=== PATIENT | female | born 1935 | race Caucasian/White ===

== ENCOUNTER 2017-09-23 14:21 | Inpatient (IN) | payer OTHER, MEDICARE ==
[~2017-09-23] VITALS: Ht 129.5 cm; Wt 68.0 kg
[2017-09-23 14:31] VITALS: BP 183/81
--- NOTE | 2017-09-23 14:38 | NUR ---
PT AA&OX4, RR EVEN/UNLABORED, EVEN AND STEADY GAIT; PT TO LOBBY AWAITING OPEN BED.
--- NOTE | 2017-09-23 14:51 | NUR ---
PT PLACED IN BED 1.
--- NOTE | 2017-09-23 15:00 | NUR ---
82f bib daughter with c/o 03/17 constant "pressure" non radiating right sided chest pain since yesterday; pt sts cp started at random when pt was at home sitting down. Pt also reports dizziness and sob since yesterday. Pt denies any n/v/d, abd pain, cough, chills, or fever. Pt is aox4 with steady gait. RR are even and unlabored. NAD. VSS. er md aware of pt status. will continue to monitor.
--- NOTE | 2017-09-23 15:02 | NUR ---
XRAY BY BEDSIDE
[2017-09-23 15:38] LABS: BASOPHILS # (AUTO) 0.1 K/uL (0.00-0.22); BASOPHILS % (AUTO) 2.4 % (0.0-2.0); EOSINOPHILS # (AUTO) 0.5 K/uL (0-0.4); EOSINOPHILS % (AUTO) 11.3 % (0.0-4.0); HEMATOCRIT 36.1 % (36-48); HEMOGLOBIN 12.1 g/dL (12.0-16.0); LYMPHOCYTES # (AUTO) 1.1 K/uL (2.5-16.5); LYMPHOCYTES % (AUTO) 23.9 % (20.5-51.1); MEAN CORPUSCULAR HEMOGLOBIN 33 pg (27-31); MEAN CORPUSCULAR HGB CONC 34 g/dL (33-37); MEAN CORPUSCULAR VOLUME 98 fL (80-94); MONOCYTES # (AUTO) 0.3 K/uL (0.8-1.0); MONOCYTES % (AUTO) 6.6 % (1.7-9.3); NEUTROPHILS # (AUTO) 2.6 K/uL (1.8-7.7); NEUTROPHILS % (AUTO) 55.8 % (42.2-75.2); PLATELET COUNT (AUTO) 158 K/uL (140-450); RED BLOOD CELL COUNT(AUTO) 3.68 MIL/uL (4.20-5.40); RED CELL DISTRIBUTION WIDTH 12.8 % (11.6-13.7); WHITE BLOOD COUNT (AUTO) 4.6 K/uL (4.8-10.8)
[2017-09-23 15:53] LABS: PROTHROMBIN TIME 11.7 secs (10.8-13.4)
[2017-09-23 16:01] LABS: ANION GAP 18.7 (8-16); CARBON DIOXIDE 20.9 mmol/L (21-32); CHLORIDE 108 mmol/L (98-107); CREATININE 1.7 mg/dL (0.6-1.3); GLUCOSE 145 mg/dL (74-106); POTASSIUM 4.6 mmol/L (3.5-5.1); SODIUM SERUM 143 mmol/L (136-145); UREA NITROGEN, BLOOD 45 mg/dL (7-18)
[2017-09-23 16:04] LABS: ALBUMIN 4.9 g/dL (3.4-5.0); ASPARTATE AMINOTRANSFERASE 27 U/L (15-37); TOTAL BILIRUBIN 0.6 mg/dL (0.0-1.0)
--- NOTE | 2017-09-23 16:05 | NUR ---
pt resting with eyes closed in gurney; pt is aox4. RR are even and unlabored. nad. vss. will continue to monitor.
[2017-09-23 16:06] LABS: APPEARANCE,URINE CLEAR (CLEAR); BILIRUBIN,URINE NEGATIVE (NEGATIVE); BLOOD, URINE TRACE-I (NEGATIVE); COLOR,URINE YELLOW (YELLOW); LEUKOCYTE ESTERASE ,URINE NEGATIVE (NEGATIVE); NITRITE, URINE POSITIVE (NEGATIVE); PH,URINE 5.5 (5.0-9.0); UGLUCOSE NEGATIVE (NEGATIVE)
[2017-09-23 16:14] LABS: RBC,URINE 0-5 (RARE) /HPF (0-5); WBC,URINE 0-5 (RARE) /HPF (0-5)
[2017-09-23] MEDS ORDERED: HYDROcodone/APAP 7.5/325 MG 1 TAB PO PRN (16:45)
[2017-09-23] MEDS ORDERED: NITROGLYCERIN 0.4 MG TAB SL PRN (16:45)
[2017-09-23] MEDS ORDERED: DOCUSATE SODIUM 100 MG GELCAP PO PRN (16:45)
[2017-09-23] MEDS ORDERED: ONDANSETRON 4 MG/2 ML VIAL IVP PRN (16:45)
[2017-09-23] MEDS ORDERED: NITROGLYCERIN 0.4 MG TAB SL ONE (16:45)
[2017-09-23] MEDS ORDERED: ASPIRIN 81 MG TAB.CHEW PO ONE (16:45)
[2017-09-23] MEDS ORDERED: ALBUTEROL SULFATE/IPRATROPIU 3 ML SOL IH PRN (16:45)
[2017-09-23] MEDS ORDERED: AMLO10TA PO (17:08)
[2017-09-23] MEDS ORDERED: OMEP20TC12 PO (17:08)
[2017-09-23] MEDS ORDERED: CEPH500C16 PO (17:08)
[2017-09-23] MEDS ORDERED: METF1TAB34 PO (17:08)
[2017-09-23] MEDS ORDERED: VITD1000 PO (17:08)
[2017-09-23] MEDS ORDERED: ASPI81CT89 PO (17:08)
[2017-09-23] MEDS ORDERED: SITA100T8 PO (17:08)
[2017-09-23] MEDS ORDERED: DEXTROSE 50% 50 ML SYR IVP PRN (17:15)
[2017-09-23] MEDS ORDERED: MECLIZINE 25 MG TAB PO PRN (17:15)
[2017-09-23] MEDS ORDERED: INSULIN LISPRO SLIDING SCALE 100 UNITS/ML VIAL SUBQ PRN (17:15)
[2017-09-23] MEDS ORDERED: LOSARTAN 25 MG TAB PO SCH (17:30)
--- NOTE | 2017-09-23 17:35 | NUR ---
PT ARRIVED ON THE FLOOR WITH 2 ER NURSES. PT IS AWAKE AND ORIENTED. INTRODUCED MYSELF AND UPDATED THE BOARD. PT IS ACCOMPANIED BY HER DAUGHTER WHO SPEAKS SOME CZECH. PT HAS IV ON L WRIST 22G SL. SKIN INTACT. V/S WITHIN NORMAL LIMITS. BP SLIGHTLY ELEVATED. PT WOULD LIKE TO GO TO THE RESTROOM. PT AMBULATES WITH VERY LITTLE ASSISTANCE. ADMINISTERED TELE MONITOR, YELLOW SOCKS, YELLOW ARM BAND AND YELLOW SIGN. MRSA SCREENING DONE. C/O OF DECKER 11/15. REFUSES PAIN MED AT THIS TIME. WILL CONTINUE WITH THE ADMISSION PROCESS.
--- NOTE | 2017-09-23 17:40 | NUR ---
Patient will be admitted to care of [facility]. Admited to Tele. Will go to room 110B. Belongings list completed. Bedside report to Brenda SAWYER.
[2017-09-23] MEDS ORDERED: ALBUTEROL SULFATE/IPRATROPIU 3 ML SOL IH SCH ×2 (18:00→19:00)
[2017-09-23 18:04] VITALS: BP 151/82
[2017-09-23 18:20] LABS: CHOL/HDL RATIO 6.5 (1-4.5); FREE T4 (FREE THYROXINE) 1.13 ng/dL (0.76-1.46); MAGNESIUM 2.3 mg/dL (1.8-2.4); PHOSPHORUS 4.1 mg/dL (2.5-4.9); THYROID STIMULATING HORMONE 5.2 uIU/mL (0.34-3.74)
[2017-09-23] MEDS: NACL 0.9% 1,000 ML IV SCH (18:33)
[2017-09-23] MEDS: ACETAMINOPHEN 325 MG TAB PO PRN (18:34)
--- NOTE | 2017-09-23 18:42 | NUR ---
ADMINISTERED IVF, NS AT 50ML/HR. GAVE HER BP MED AND SOME TYLENOL FOR THE DECKER. PT TOLERATED WELL. PT EATING DINNER. DAUGHTER AT BEDSIDE. WILL CONTINUE TO MONITOR PT.
[2017-09-23] MEDS ORDERED: amLODIPine 5 MG TAB PO SCH ×2 (18:45)
--- NOTE | 2017-09-23 19:13 | NUR ---
ENDORSED PT TO THE SIDE SEAM TENDER NURSE AT BEDSIDE FOR CONTINUITY OF CARE. PT IS RESTING COMFORTABLY. NO SIGNS OF DISTRESS. DECKER BETTER. PT IN STABLE CONDITION.
--- NOTE | 2017-09-23 19:14 | NUR ---
RECEIVED BEDSIDE REPORT FROM DAY SHIFT NURSE LOUIE RN, PT STABLE, NO DISTRESS NOTED, IV TO L WRIST 22G RUNNING NS @ 50ML/HR, PT STATED HAVING NO PAIN AT THIS MOMENT, NO SOB, INITIAL ASSESSMENT DONE, ALL SAFETY PRECAUTION MET, WILL CONTINUE TO MONITOR.
[2017-09-23 19:59] VITALS: BP 135/65
[2017-09-23] MEDS: cefTRIAXone 2,000 MG in NACL 0.9% 100 ML IV SCH (20:29)
[2017-09-23] MEDS: ATORVASTATIN 20 MG TAB PO SCH (20:29)
[2017-09-23] MEDS: METOPROLOL 25 MG TAB PO SCH (20:29)
[2017-09-23] MEDS: BLOOD GLUCOSE MONITORING 1 DEV DEV FS SCH (20:34)
--- NOTE | 2017-09-23 20:44 | NUR ---
DUE MEDICATION GIVEN, PT TOLERATED WELL, NO DISTRESS NOTED, CALL LIGHT WITHIN REACH, WILL CONTINUE TO MONITOR.
--- NOTE | 2017-09-23 21:05 | NUR ---
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
--- NOTE | 2017-09-23 21:22 | NUR ---
PT CAME BACK TO UNIT FROM RADIOLOGY, PT STABLE, NO DISTRESS NOTED, CALL LIGHT WITHIN REACH, WILL CONTINUE TO MONITOR.
--- NOTE | 2017-09-23 23:30 | NUR ---
PT AMBULATED TO THE RESTROOM AND BACK TO BED, TOLERATED WELL, NO DISTRESS NOTED, CALL LIGHT WITHIN REACH, WILL CONTINUE TO MONITOR.
[2017-09-24] VITALS: BP 150/75
--- NOTE | 2017-09-24 01:28 | NUR ---
CHECKED ON PT, PT SLEEPING, EASY TO AROUSE, NO DISTRESS NOTED, CALL LIGHT WITHIN REACH, WILL CONTINUE TO MONITOR. PT STATED NOT WANTING TO WEAR THE SCDS DUE TO FEELING CONSTRICTED.
--- NOTE | 2017-09-24 03:10 | NUR ---
PT AMBULATED TO RESTROOM AND BACK TO BED, NO DISTRESS NOTED, CALL LIGHT WITHIN REACH, WILL CONTINUE TO MONITOR.
[2017-09-24 04:00] VITALS: BP 133/79
--- NOTE | 2017-09-24 04:10 | NUR ---
PT AMBULATED TO RESTROOM AND BACK TO BED, NO DISTRESS NOTED, VS TAKEN, PT STABLE, CALL LIGHT WITHIN REACH, WILL CONTINUE TO MONITOR.
[2017-09-24] MEDS: BLOOD GLUCOSE MONITORING 1 DEV DEV FS SCH ×4 (05:57→20:39)
--- NOTE | 2017-09-24 07:30 | NUR ---
GAVE BEDSIDE REPORT TO DAY SHIFT NURSE NEIDA SAWYER, PT STABLE, NO DISTRESS NOTED, SLEEPING, CALL LIGHT WITHIN REACH.
--- NOTE | 2017-09-24 07:35 | NUR ---
ENDORSEMENT RECEIVED FROM TACK DRILLER NURSE. PATIENT IS SLEEPING COMFORTABLY. RESPIRATION EVEN, UNLABOR ON ROOM AIR. SKIN DRY AND WARM. IV PATENT AND INTACT. NO DISTRESS NOTED AT THIS TIME. BED AT LOW POSITION, SIDE RAILS UP. CALL LIGHT WITHIN REACH.
[2017-09-24 08:00] VITALS: BP 147/67
[2017-09-24 08:25] LABS: BASOPHILS # (AUTO) 0.1 K/uL (0.00-0.22); BASOPHILS % (AUTO) 1.7 % (0.0-2.0); EOSINOPHILS # (AUTO) 0.4 K/uL (0-0.4); EOSINOPHILS % (AUTO) 11.7 % (0.0-4.0); HEMATOCRIT 35.9 % (36-48); HEMOGLOBIN 11.9 g/dL (12.0-16.0); LYMPHOCYTES # (AUTO) 0.5 K/uL (2.5-16.5); LYMPHOCYTES % (AUTO) 12.9 % (20.5-51.1); MEAN CORPUSCULAR HEMOGLOBIN 32 pg (27-31); MEAN CORPUSCULAR HGB CONC 33 g/dL (33-37); MEAN CORPUSCULAR VOLUME 98 fL (80-94); MONOCYTES # (AUTO) 0.3 K/uL (0.8-1.0); MONOCYTES % (AUTO) 7.1 % (1.7-9.3); NEUTROPHILS # (AUTO) 2.4 K/uL (1.8-7.7); NEUTROPHILS % (AUTO) 66.6 % (42.2-75.2); PLATELET COUNT (AUTO) 177 K/uL (140-450); RED BLOOD CELL COUNT(AUTO) 3.68 MIL/uL (4.20-5.40); RED CELL DISTRIBUTION WIDTH 12.4 % (11.6-13.7); WHITE BLOOD COUNT (AUTO) 3.7 K/uL (4.8-10.8)
[2017-09-24] MEDS: LACTOBACILLUS RHAMNOSUS GG 1 EACH CAP PO SCH (08:39)
[2017-09-24] MEDS: CHOLECALCIFEROL 1,000 IU TAB PO SCH (08:39)
[2017-09-24] MEDS: PANTOPRAZOLE 40 MG TABEC PO SCH (08:39)
[2017-09-24] MEDS: amLODIPine 5 MG TAB PO SCH (08:39)
[2017-09-24] MEDS: METOPROLOL 25 MG TAB PO SCH ×2 (08:40→20:43)
[2017-09-24] MEDS: LOSARTAN 50 MG TAB PO SCH (08:41)
[2017-09-24] MEDS: ASPIRIN 81 MG TAB.CHEW PO SCH (08:41)
[2017-09-24] MEDS: ACETAMINOPHEN 325 MG TAB PO PRN ×2 (08:41→19:37)
[2017-09-24] MEDS ORDERED: ASPIRIN 81 MG TAB.CHEW PO SCH (09:00)
[2017-09-24] MEDS ORDERED: LOSARTAN 25 MG TAB PO SCH (09:00)
[2017-09-24] MEDS ORDERED: HYDROCHLOROTHIAZIDE 25 MG TAB PO SCH (09:00)
[2017-09-24] MEDS ORDERED: NON-FORMULARY ITEM (Omeprazole (Omeprazole) 40 MG) PO SCH (09:00)
--- NOTE | 2017-09-24 09:13 | NUR ---
PATIENT HAS BEEN SCREENED AND CATEGORIZED HIGH NUTRITION RISK. PATIENT WILL BE SEEN WITHIN 1-2 DAYS OF ADMISSION. 09/23/17-09/24/[address]
[2017-09-24 09:21] LABS: CARBON DIOXIDE 18.9 mmol/L (21-32); CHLORIDE 110 mmol/L (98-107); CREATININE 1.3 mg/dL (0.6-1.3); GLUCOSE 140 mg/dL (74-106); POTASSIUM 3.9 mmol/L (3.5-5.1); SODIUM SERUM 144 mmol/L (136-145); UREA NITROGEN, BLOOD 37 mg/dL (7-18)
[2017-09-24 09:24] LABS: MAGNESIUM 2.1 mg/dL (1.8-2.4); PHOSPHORUS 3.7 mg/dL (2.5-4.9)
--- NOTE | 2017-09-24 11:30 | NUR ---
PATIENT IS AWAKE, ALERT. RESPIRATION EVEN, UNLABOR ON ROOM AIR. AMBULATE WITH ASSIST TO BATHROOM, STEADY GAIT. VS WAS TAKEN. DENIED PAIN AT THIS TIME. CALL LIGHT WITHIN REACH
[2017-09-24 12:00] VITALS: BP 114/55
[2017-09-24] MEDS: NACL 0.9% 1,000 ML IV SCH (12:53)
--- NOTE | 2017-09-24 14:33 | NUR ---
PATIENT IS SLEEPING COMFORTABLY. RESPIRATION EVEN, UNLABOR ON ROOM AIR. NO DISTRESS NOTED AT THIS TIME. CALL LIGHT WITHIN REACH
[2017-09-24 16:00] VITALS: BP 95/47
--- NOTE | 2017-09-24 16:00 | NUR ---
PATIENT IS AWAKE, ALERT. RESPIRATION EVEN, UNLABOR ON RA. DENIED PAIN AT THIS TIME. VS WAS TAKEN. CALL LIGHT WITHIN REACH.
--- NOTE | 2017-09-24 16:04 | NUR ---
09/24/2017 RD INITIAL ASSESSMENT COMPLETED PLEASE REFER TO NUTRITION ASSESSMENT UNDER CARE ACTIVITY FOR ESTIMATED NUTRITIONAL NEEDS. PER CONVERSATION WITH RN, RN WILL UPDATE HEIGHT WEIGHT FOR MORE ACCURATE EVALUATION OF BMI AND ESTIMATED NEEDS. CONTINUE WITH CURRENT DIET OF 60 GM CCHO AND ANITHYPERGLYCEMIC MEDS FOR GLUCOSE CONTROL RD TO FOLLOW-UP IN 2-3 DAYS PATIENT IS HIGH RISK. LIZZY FORD, RD
--- NOTE | 2017-09-24 18:24 | NUR ---
PATIENT IS AWAKE, ALERT. RESPIRATION EVEN, UNLABOR ON 2L NC. DENIED PAIN, SOB AT THIS TIME. IV PATENT AND INTACT. FAMILY AT BEDSIDE. CALL LIGHT WITHIN REACH
--- NOTE | 2017-09-24 19:20 | NUR ---
ENDORSEMENT GIVEN TO THE [employer] ARCHITECT NURSE. PATIENT IS STABLE AT THIS TIME.
--- NOTE | 2017-09-24 19:21 | NUR ---
RECEIVED BEDSIDE REPORT FROM DAY SHIFT NURSE NEIDA RN, PT STABLE, NO DISTRESS NOTED, IV TO LWRIST 22 G RUNNING NS @ 50ML/HR, INFUSING WELL, PT ON ROOM AIR NO SOB, REPORTED HAVING HEADACHE OF 3/10, WILL MEDICATE, INITIAL ASSESSMENT DONE, ALL SAFETY PRECAUTION MET, FAMILY BY BEDSIDE, CALL LIGHT WITHIN REACH, WILL CONTINUE TO MONITOR.
--- NOTE | 2017-09-24 19:37 | NUR ---
PT C/O OF HEADACHE 11/15, TYLENOL GIVEN, PT TOLERATED WELL, NO DISTRESS NOTED, CALL LIGHT WITHIN REACH, WILL CONTINUE TO MONITOR.
[2017-09-24 20:00] VITALS: BP 116/60
[2017-09-24] MEDS: cefTRIAXone 2,000 MG in NACL 0.9% 100 ML IV SCH (20:10)
[2017-09-24] MEDS: ATORVASTATIN 20 MG TAB PO SCH (20:40)
--- NOTE | 2017-09-24 20:40 | NUR ---
DUE MEDICATION GIVEN, PT TOLERATED WELL, NO DISTRESS NOTED, CALL LIGHT WITHIN REACH, WILL CONTINUE TO MONITOR.
[2017-09-25] VITALS: BP 114/68
--- NOTE | 2017-09-25 00:08 | NUR ---
CHECKED ON PT, PT SLEEPING, EASY TO AROUSE, V/S TAKEN, PT STABLE, NO DISTRESS NOTED, CALL LIGHT WITHIN REACH, WILL CONTINUE TO MONITOR.
--- NOTE | 2017-09-25 01:20 | NUR ---
PT SLEEPING, NO DISTRESS NOTED, CALM AND COOPERATIVE, CALL LIGHT WITHIN REACH, WILL CONTINUE TO MONITOR.
--- NOTE | 2017-09-25 03:30 | NUR ---
PT PULLED OUT IV, CATH INTACT, NEW IV INSERTED L FA 22G SL, PT TOLERATED WELL, NO DISTRESS NOTED, CALL LIGHT WITHIN REACH, WILL CONTINUE TO MONITOR. Addendum: 09/25/17 at 0515 by Shala Gordon RN WRONG PATIENT
[2017-09-25] MEDS: ACETAMINOPHEN 325 MG TAB PO PRN ×2 (03:47→12:20)
--- NOTE | 2017-09-25 03:47 | NUR ---
PT STATED HAVING HEADACHE 3/10, TYLENOL PRESCRIBED GIVEN, PT TOLERATED WELL, NO DISTRESS NOTED, CALL LIGHT WITHIN REACH, WILL CONTINUE TO MONITOR.
[2017-09-25 04:00] VITALS: BP 111/54
--- NOTE | 2017-09-25 07:19 | NUR ---
GAVE BEDSIDE REPORT TO DAY SHIFT NURSE GUILLERMO SAWYER, ENDORSED PLAN OF CARE, PT STABLE, NO DISTRESS NOTED, CALL LIGHT WITHIN REACH.
[2017-09-25 07:20] LABS: BASOPHILS # (AUTO) 0.1 K/uL (0.00-0.22); BASOPHILS % (AUTO) 1.4 % (0.0-2.0); EOSINOPHILS # (AUTO) 0.7 K/uL (0-0.4); EOSINOPHILS % (AUTO) 16.1 % (0.0-4.0); HEMATOCRIT 31.1 % (36-48); HEMOGLOBIN 10.4 g/dL (12.0-16.0); LYMPHOCYTES # (AUTO) 0.9 K/uL (2.5-16.5); LYMPHOCYTES % (AUTO) 22.5 % (20.5-51.1); MEAN CORPUSCULAR HEMOGLOBIN 32 pg (27-31); MEAN CORPUSCULAR HGB CONC 33 g/dL (33-37); MEAN CORPUSCULAR VOLUME 97 fL (80-94); MONOCYTES # (AUTO) 0.4 K/uL (0.8-1.0); MONOCYTES % (AUTO) 10.1 % (1.7-9.3); NEUTROPHILS # (AUTO) 1.9 K/uL (1.8-7.7); NEUTROPHILS % (AUTO) 49.9 % (42.2-75.2); PLATELET COUNT (AUTO) 161 K/uL (140-450); RED BLOOD CELL COUNT(AUTO) 3.21 MIL/uL (4.20-5.40); RED CELL DISTRIBUTION WIDTH 12.6 % (11.6-13.7)
--- NOTE | 2017-09-25 07:20 | NUR ---
RECEIVED REPORT FROM CERTIFIED SURGICAL TECH/FIRST ASSISTANT NURSE, PT IS SLEEPING IN BED BUT EASILY AWAKEN, PT IS A/OX4, AMBULATORY, SKIN IS INTACT, PT HAS IV ON THE LEFT WRIST, PATENT, INTACT, FLUSHING WELL, NO S/S OF RESPIRATORY DISTRESS OR DISCOMFORT NOTED, DISCUSSED PLAN OF CARE WITH PT, PT VERBALIZED UNDERSTANDING, CALL LIGHT IS WITHIN REACH, WILL CONTINUE TO MONITOR.
[2017-09-25 07:28] LABS: MAGNESIUM 2.1 mg/dL (1.8-2.4); PHOSPHORUS 3.5 mg/dL (2.5-4.9)
[2017-09-25 07:43] LABS: CARBON DIOXIDE 18.2 mmol/L (21-32); CHLORIDE 114 mmol/L (98-107); CREATININE 1.4 mg/dL (0.6-1.3); GLUCOSE 121 mg/dL (74-106); POTASSIUM 4.2 mmol/L (3.5-5.1); SODIUM SERUM 145 mmol/L (136-145); UREA NITROGEN, BLOOD 36 mg/dL (7-18)
[2017-09-25 08:00] VITALS: BP 136/62
[2017-09-25] MEDS: BLOOD GLUCOSE MONITORING 1 DEV DEV FS SCH ×2 (08:19→11:30)
[2017-09-25] MEDS: ASPIRIN 81 MG TAB.CHEW PO SCH (08:20)
[2017-09-25] MEDS: amLODIPine 5 MG TAB PO SCH (08:21)
[2017-09-25] MEDS: LOSARTAN 50 MG TAB PO SCH (08:21)
[2017-09-25] MEDS: METOPROLOL 25 MG TAB PO SCH (08:22)
[2017-09-25] MEDS: PANTOPRAZOLE 40 MG TABEC PO SCH (08:22)
[2017-09-25] MEDS: CHOLECALCIFEROL 1,000 IU TAB PO SCH (08:22)
--- NOTE | 2017-09-25 08:22 | NUR ---
DUE MEDICATION GIVEN, PT TOLERATED WELL, CALL LIGHT IS WITHIN REACH.
[2017-09-25] MEDS: LACTOBACILLUS RHAMNOSUS GG 1 EACH CAP PO SCH (08:23)
[2017-09-25] MEDS: NACL 0.9% 1,000 ML IV SCH (08:41)
[2017-09-25] MEDS ORDERED: LOSA50TA1 PO (10:53)
[2017-09-25] MEDS ORDERED: METO25TA PO (10:53)
[2017-09-25] MEDS ORDERED: ATOR20TA40 PO (10:53)
[2017-09-25] MEDS ORDERED: SITA50TA3 PO (10:53)
[2017-09-25] MEDS ORDERED: cefTRIAXone 2,000 MG in NACL 0.9% 100 ML IV SCH (12:00)
--- NOTE | 2017-09-25 13:30 | NUR ---
DISCHARGE INSTRUCTIONS GIVEN, IV REMOVED, CATHETER TIP INTACT, ID WRIST BAND REMOVED. PT STABLE UPON DISCHARGE ACCOMPANIED BY HER DAUGHTER.
== END 2017-09-25 13:30 | disposition home or self-care (01) | DRG 205 ==
LOC: MED 14:21 → UNDOADMIN 16:53 → MTU 16:53
PROVIDERS: ADMIT Family Medicine Sports Medicine; ATTEND Family Medicine Sports Medicine
DX: M94.0 Chondrocostal junction syndrome [Tietze] (principal); N17.0 Acute kidney failure with tubular necrosis; E43 Unspecified severe protein-calorie malnutrition; E11.22 Type 2 diabetes mellitus with diabetic chronic kidney disease; D68.59 Other primary thrombophilia; E11.51 Type 2 diabetes mellitus with diabetic peripheral angiopathy without gangrene; N18.4 Chronic kidney disease, stage 4 (severe); E87.8 Other disorders of electrolyte and fluid balance, not elsewhere classified; E66.01 Morbid (severe) obesity due to excess calories; N39.0 Urinary tract infection, site not specified; Z68.41 Body mass index [BMI] 40.0-44.9, adult; D64.9 Anemia, unspecified; G90.9 Disorder of the autonomic nervous system, unspecified; K21.9 Gastro-esophageal reflux disease without esophagitis; E78.5 Hyperlipidemia, unspecified; R31.9 Hematuria, unspecified; D72.819 Decreased white blood cell count, unspecified; E02 Subclinical iodine-deficiency hypothyroidism; I13.10 Hypertensive heart and chronic kidney disease without heart failure, with stage 1 through stage 4 chronic kidney disease, or unspecified chronic kidney disease; I70.0 Atherosclerosis of aorta; Z79.84 Long term (current) use of oral hypoglycemic drugs; Z79.82 Long term (current) use of aspirin; Z79.899 Other long term (current) drug therapy; Z79.4 Long term (current) use of insulin
CPT/HCPCS: 36415; 70450; 71045; 76770; 80048; 80053; 81001; 82140; 82150; 82948; 83036; 83690; 83735; 83880; 84100; 84439; 84443; 84484; 85025; 85610; 85730; 87081; 87086; 93005; 93880; 93925; 93970; 93976; 99285; J0696; J1815; J7030; Q0092